=== PATIENT | male | born 1995 | race Caucasian/White ===

== ENCOUNTER 2021-03-11 17:17 | Emergency (ER) | payer SELFPAY ==
--- OUTSIDE RECORDS SUMMARY | 2021-03-11 17:20 | XMS REPORT | Continuity of Care Document ---
:[address] [facility] t Address [address] [place] [address] Care Team Providers Name Role Phone Unavailable Unavailable Unavailable Problems This patient has no known problems. Allergies, Adverse Reactions, Alerts This patient has no known allergies or adverse reactions. Medications This patient has no known medications. Procedures This patient has no known procedures. Results This patient has no known results.
--- NOTE | 2021-03-11 20:16 | RAD REPORT ---
EXAM DESCRIPTION: US - Abdomen Exam Limited - 03/11/2021 8:05 pm CLINICAL HISTORY: Abdominal pain. COMPARISON: None. FINDINGS: Examination is limited secondary to body habitus. The gallbladder wall is not thickened. A gallstone is not seen. Evaluation of the common bile duct limited secondary to overlying bowel gas. IMPRESSION: Grossly normal gallbladder ultrasound
[2021-03-11 21:08] LABS: Absolute Lymphocytes (CBC) 0.7 K/uL (0.7-4.9); Basophils % 0.4 % (0-1.3); Lymphocytes % 10.7 % (15.3-44.8); MPV 7.3 fL (7.6-11.3); RBC Red Blood Cell Count 4.27 M/uL (4.33-5.43)
[2021-03-11 21:17] LABS: Albumin 3.9 g/dL (3.4-5.0); Bilirubin Direct 0.1 mg/dL (0-0.2); Bilirubin Total 0.5 mg/dL (0.2-1.0); Potassium 3.6 mmol/L (3.5-5.1); Protein, Total 7.6 g/dL (6.4-8.2)
[2021-03-11] MEDS ORDERED: NA CHLORIDE 0.9% 1,000 ML ONE ×2 (22:06→23:08)
[2021-03-11] MEDS ORDERED: ONDANSETRON 4 MG/2 ML VIAL ONE (22:06)
[2021-03-11] MEDS ORDERED: FENTANYL CITR 100 MCG/2 ML ONE (22:06)
[2021-03-11] MEDS ORDERED: ACETAMINOPHEN 500 MG TAB ONE (23:08)
[2021-03-12 00:02] LABS: Urine Blood Negative (Negative); Urine Glucose Negative (Negative); Urine Protein Negative (Negative); Urine pH 5.5 (5.0-7.0)
--- NOTE | 2021-03-12 00:07 | ER ---
Nurse's Notes [facility] Name: Donis Moreno Age: 25 yrs Sex: Male : 1995 Arrival Date: 03/11/2021 Time: 17:21 Bed 15 Private MD: Diagnosis: Upper abdominal pain, unspecified Presentation: 03/11 18:09 Chief complaint: Patient states: RUQ pain x 2-3 days ago and fever today. Pt denies aa5 cough. Pt reports nausea. Denies vomiting/diarrhea. Coronavirus screen: fever. Ebola Screen: Patient negative for fever greater than or equal to 101.5 degrees Fahrenheit, and additional compatible Ebola Virus Disease symptoms. Initial Sepsis Screen: Does the patient meet any 2 criteria? HR > 90 bpm. Does the patient have a suspected source of infection? No. Patient's initial sepsis screen is negative. Risk Assessment: Do you want to hurt yourself or someone else? Patient reports no desire to harm self or others. Onset of symptoms was March 2021. 18:09 Acuity: CHAPARRITA 3 aa5 18:09 Method Of Arrival: Ambulatory aa5 Historical: - Allergies: 18:08 No Known Allergies; aa5 - PMHx: 18:08 None; aa5 - PSHx: 18:08 None; hernia; neck sx (tissue removed); aa5 - Immunization history:: Client reports having NOT received the Covid vaccine. - Social history:: Smoking status: Patient denies any tobacco usage or history of. Screenin:54 Abuse screen: Denies threats or abuse. Nutritional screening: No deficits noted. bb Tuberculosis screening: No symptoms or risk factors identified. Fall Risk None identified. Assessment: 21:54 General: Appears in no apparent distress. uncomfortable, obese, Behavior is calm, bb cooperative. Pain: Complains of pain in abdomen Pain currently is 9 out of 10 on a pain scale. Neuro: Level of Consciousness is awake, alert, obeys commands, Oriented to person, place, time, situation. Cardiovascular: Capillary refill < 3 seconds Patient's skin is warm and dry. Respiratory: Respiratory effort is even, unlabored, Respiratory pattern is regular. GI: Abdomen is obese. Derm: Skin is pink, warm \T\ dry. Musculoskeletal: Circulation, motion, and sensation intact. 23:03 Reassessment: Patient is alert, oriented x 3, equal unlabored respirations, skin bb warm/dry/pink. pt states pain is a little better now 7/10, IV site intact, patent, with fluids infusing, family at bedside Patient states feeling better. 03/12 00:23 Reassessment: pt resting quietly temp 101.3 Abebe TINSLEY notified pt medicated see MAR bb pt will wait for result of Covid swab prior to discharge, IV site intact, family at bedside. 01:26 Reassessment: Patient is alert, oriented x 3, equal unlabored respirations, skin bb warm/dry/pink. pt verbalized understanding of and agrees to plan of care discharge instructions given pt ambulated with steady gait to exit accompanied by spouse Patient states feeling better. Vital Signs: 03/11 18:09 BP 117 / 81; Pulse 114; Resp 20 S; Temp 100.9(O); Pulse Ox 98% on R/A; Weight 174.18 kg aa5 (R); Height 6 ft. 0 in. (182.88 cm) (R); 21:54 BP 121 / 62; Pulse 96; Resp 20; Pulse Ox 99% on R/A; Pain 9/10; bb 23:03 BP 119 / 48; Pulse 86; Resp 20 S; Temp 99.7(O); Pulse Ox 98% on R/A; Pain 7/10; bb 03/12 00:25 BP 104 / 62; Pulse 100; Resp 26 S; Temp 101.3(O); Pulse Ox 99% on R/A; bb 01:27 BP 101 / 61; Pulse 103; Resp 21 S; Temp 99.2(O); Pulse Ox 96% on R/A; Pain 4/10; bb 03/11 18:09 Body Mass Index 52.08 (174.18 kg, 182.88 cm) aa5 ED Course: 03/11 17:21 Patient arrived in ED. mr 18:08 Arm band placed on. aa5 18:11 Triage completed. aa5 20:33 Abdomen Exam Limited In Process Unspecified. EDMS 20:45 Abebe Hernández PA is PHCP. cp 20:45 Kevin Bhatt MD is Attending Physician. cp 21:38 Inserted saline lock: 20 gauge in left antecubital area, using aseptic technique. bb 21:53 Joselyn Plummer, RN is Primary Nurse. bb 21:54 Patient has correct armband on for positive identification. Bed in low position. Call bb light in reach. Adult w/ patient. Pulse ox on. NIBP on. 23:02 CT Abd/Pelvis - IV Contrast Only In Process Unspecified. EDMS 03/12 00:05 Mo Richmond MD is Referral Physician. cp 01:16 Mo Richmond MD is Referral Physician. cp 01:28 No provider procedures requiring assistance completed. IV discontinued, intact, bb bleeding controlled, No redness/swelling at site. Pressure dressing applied. Administered Medications: 03/11 21:50 Drug: NS 0.9% 1000 ml Route: IV; Rate: 1 bolus; Site: left antecubital; bb 23:31 Follow up: IV Status: Completed infusion; IV Intake: 1000ml bb 21:51 Drug: fentaNYL (PF) 25 mcg Route: IVP; Site: left antecubital; bb 23:02 Follow up: Response: Pain is decreased bb 21:53 Drug: fentaNYL (PF) 25 mcg {Note: RASS 0.} Route: IVP; Site: left antecubital; bb 23:02 Follow up: Response: Pain is decreased; RASS: Alert and Calm (0) bb 21:54 Drug: Zofran (Ondansetron) 4 mg Route: IVP; Site: left antecubital; bb 23:03 Follow up: Response: No adverse reaction bb 23:02 Drug: Tylenol 1000 mg Route: PO; bb 23:30 Follow up: Response: No adverse reaction bb 23:31 Drug: NS 0.9% 1000 ml Route: IV; Rate: 1 bolus; Site: left antecubital; bb 03/12 01:29 Follow up: IV Status: Order to discontinue infusion; IV Intake: 900ml bb 00:14 Drug: Ibuprofen 800 mg Route: PO; bb :29 Follow up: Response: No adverse reaction; Temperature is decreased bb Intake: 03/11 23:31 IV: 1000ml; Total: 1000ml. bb 03/12 01:29 IV: 900ml; Total: 1900ml. bb Outcome: 00:06 Discharge ordered by . cp 01:17 Discharge ordered by . cp 01:29 Discharged to home ambulatory, with family. bb :29 Condition: stable 01:29 Discharge instructions given to patient, Instructed on discharge instructions, follow up and referral plans. medication usage, Demonstrated understanding of instructions, follow-up care, medications, Prescriptions given X 3. 01:40 Patient left the ED. bb Signatures: Dispatcher [employer] Vannesa Squires mr ElianJoselyn, RN RN bb Naya Vallejo RN RN aa5 Abebe Hernández PA PA cp Corrections: (The following items were deleted from the chart) 00:25 09 21:54 BP 121 / 62; Pulse 96bpm; Resp 16bpm; Spontaneous; Pulse Ox 99% RA; Pain bb 03/18; bb
--- NOTE | 2021-03-12 00:07 | EDPHYS ---
Physician Documentation [facility] Name: Donis Moreno Age: 25 yrs Sex: Male : 1995 Arrival Date: 03/11/2021 Time: 17:21 Bed 15 Private MD: ED Physician Kevin Bhatt HPI: 03/11 21:15 This 25 yrs old Male presents to ER via Ambulatory with complaints of Nausea, cp Abdominal Pain. 21:15 The patient presents with abdominal pain in the right upper quadrant. Onset: The cp symptoms/episode began/occurred 3 day(s) ago. The symptoms radiate to back. Associated signs and symptoms: Pertinent positives: fever, nausea, Pertinent negatives: chest pain, constipation, diarrhea, testicular pain, vomiting. The symptoms are described as constant. Historical: - Allergies: 18:08 No Known Allergies; aa5 - PMHx: 18:08 None; aa5 - PSHx: 18:08 None; hernia; neck sx (tissue removed); aa5 - Immunization history:: Client reports having NOT received the Covid vaccine. - Social history:: Smoking status: Patient denies any tobacco usage or history of. ROS: 21:20 Constitutional: Positive for fever, Negative for body aches, chills, poor PO intake. cp 21:20 Eyes: Negative for injury, pain, redness, and discharge. cp 21:20 ENT: Negative for drainage from ear(s), ear pain, sore throat, difficulty swallowing, difficulty handling secretions. 21:20 Cardiovascular: Negative for chest pain. 21:20 Respiratory: Negative for cough, shortness of breath, wheezing. 21:20 Abdomen/GI: Positive for abdominal pain, nausea, Negative for vomiting, diarrhea, constipation. 21:20 Back: Positive for radiated pain. 21:20 : Negative for urinary symptoms, testicular pain 21:20 Neuro: Negative for altered mental status, headache, weakness. 21:20 All other systems are negative. Exam: 21:25 Constitutional: The patient appears in no acute distress, alert, awake, cp non-diaphoretic, non-toxic, well developed, well nourished, obese. 21:25 Head/Face: Normocephalic, atraumatic. cp 21:25 Eyes: Periorbital structures: appear normal, Conjunctiva: normal, no exudate, no injection, Sclera: no appreciated abnormality, Lids and lashes: appear normal, bilaterally. 21:25 ENT: External ear(s): are unremarkable, Nose: is normal, Mouth: Lips: moist, Oral mucosa: moist, Posterior pharynx: Airway: no evidence of obstruction, patent. 21:25 Neck: ROM/movement: is normal, is supple, without pain, no range of motions limitations. 21:25 Chest/axilla: Inspection: normal, Palpation: is normal, no crepitus, no tenderness. 21:25 Cardiovascular: Rate: tachycardic, Rhythm: regular. 21:25 Respiratory: the patient does not display signs of respiratory distress, Respirations: normal, no use of accessory muscles, no retractions, labored breathing, is not present, Breath sounds: are clear throughout, no decreased breath sounds, no stridor, no wheezing. 21:25 Abdomen/GI: Inspection: obese Bowel sounds: active, all quadrants, Palpation: soft, in all quadrants, moderate abdominal tenderness, in the epigastric area and right upper quadrant, rebound tenderness, is not appreciated, involuntary guarding, is not appreciated. 21:25 Back: pain, that is moderate, of the mid to upper back, ROM is normal. 21:25 Neuro: Orientation: to person, place \T\ time. Mentation: is normal, Motor: moves all fours, strength is normal. Vital Signs: 18:09 BP 117 / 81; Pulse 114; Resp 20 S; Temp 100.9(O); Pulse Ox 98% on R/A; Weight 174.18 kg aa5 (R); Height 6 ft. 0 in. (182.88 cm) (R); 21:54 BP 121 / 62; Pulse 96; Resp 20; Pulse Ox 99% on R/A; Pain 9/10; bb 23:03 BP 119 / 48; Pulse 86; Resp 20 S; Temp 99.7(O); Pulse Ox 98% on R/A; Pain 7/10; bb 09/04 00:25 BP 104 / 62; Pulse 100; Resp 26 S; Temp 101.3(O); Pulse Ox 99% on R/A; bb 01:27 BP 101 / 61; Pulse 103; Resp 21 S; Temp 99.2(O); Pulse Ox 96% on R/A; Pain 4/10; bb 03/11 18:09 Body Mass Index 52.08 (174.18 kg, 182.88 cm) aa5 MDM: 03/11 21:02 Patient medically screened. cp 21:20 Differential diagnosis: cholecystitis, Cholelithiasis, gastritis, pancreatitis, Peptic cp Ulcer Disease, Perf. Duodenal Ulcer, Perf. Gastric Ulcer, Pyelonephritis, Ureterolithiasis, urinary tract infection. 03/12 01:16 Data reviewed: vital signs, nurses notes, lab test result(s), radiologic studies, CT cp scan, ultrasound. 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 Response to treatment: VSS. Pain and nausea markedly improved. Discussed blood work, radiology studies that were negative for significant findings. Will discharge to home for continued monitoring. Recommend HIDA scan. 03/11 18:12 Order name: CBC with Diff; Complete Time: 22:06 [facility] 03/11 22:08 Interpretation: Normal except: RBC 4.27; HGB 12.4; HCT 37.0; MPV 7.3; MALINI% 81.1; LYM% cp 10.7. 03/11 18:12 Order name: Basic Metabolic Panel; Complete Time: 22:06 [facility] 03/11 22:09 Interpretation: Normal except: GFR 72; CA 8.4. 03/11 18:12 Order name: Hepatic Function; Complete Time: 22:06 [facility] 03/11 22:12 Interpretation: Normal except: GLOB 3.7. 03/11 18:12 Order name: Lipase; Complete Time: 22:06 [facility] 03/11 20:33 Order name: Abdomen Exam Limited [facility] 03/11 22:20 Order name: CT Abd/Pelvis - IV Contrast Only 03/12 00:02 Order name: Urine Dipstick-Ancillary [facility] 03/12 00:04 Order name: Urine Dipstick-Ancillary [facility] 03/12 00:54 Order name: COVID-19/FLU A+B [facility] 03/11 18:12 Order name: IV; Complete Time: 21:39 aa5 03/11 18:12 Order name: Labs collected and sent; Complete Time: 21:39 aa5 03/11 21:08 Order name: Urine Dipstick-Ancillary (obtain specimen); Complete Time: 00:06 cp 03/11 23:28 Order name: PO challenge; Complete Time: 00:06 cp Administered Medications: 03/11 21:50 Drug: NS 0.9% 1000 ml Route: IV; Rate: 1 bolus; Site: left antecubital; bb 23:31 Follow up: IV Status: Completed infusion; IV Intake: 1000ml bb 21:51 Drug: fentaNYL (PF) 25 mcg Route: IVP; Site: left antecubital; bb 23:02 Follow up: Response: Pain is decreased bb 21:53 Drug: fentaNYL (PF) 25 mcg {Note: RASS 0.} Route: IVP; Site: left antecubital; bb 23:02 Follow up: Response: Pain is decreased; RASS: Alert and Calm (0) bb 21:54 Drug: Zofran (Ondansetron) 4 mg Route: IVP; Site: left antecubital; bb 23:03 Follow up: Response: No adverse reaction bb 23:02 Drug: Tylenol 1000 mg Route: PO; bb 23:30 Follow up: Response: No adverse reaction bb 23:31 Drug: NS 0.9% 1000 ml Route: IV; Rate: 1 bolus; Site: left antecubital; bb 03/12 01:29 Follow up: IV Status: Order to discontinue infusion; IV Intake: 900ml bb 00:14 Drug: Ibuprofen 800 mg Route: PO; bb 01:29 Follow up: Response: No adverse reaction; Temperature is decreased bb Disposition Summary: 03/12/21:17 Discharge Ordered Location: Home(03/12/21 01:17) cp Problem: new(03/12/21 01:17) cp Symptoms: have improved(03/12/21:17) cp Condition: Stable(03/12/21 01:17) cp Diagnosis - Upper abdominal pain, unspecified(03/12/21 01:17) cp Followup: cp - With: Mo Richmond MD - When: 2 - 3 days - Reason: Recheck today's complaints Discharge Instructions: - Discharge Summary Sheet cp - Abdominal Pain, Adult cp Forms: - Medication Reconciliation Form cp - Thank You Letter cp - Antibiotic Education cp - Prescription Opioid Use cp - Work release form bb Prescriptions: - Pepcid 20 mg Oral Tablet - take 1 tablet by ORAL route every 12 hours for 10 days; 20 tablet; Refills: 0, cp Product Selection Permitted - promethazine 25 mg Oral Tablet - take 1 tablet by ORAL route every 6 hours As needed; 20 tablet; Refills: 0, cp Product Selection Permitted - dicyclomine 20 mg Oral Tablet - take 1 tablet by ORAL route 4 times per day; 30 tablet; Refills: 0, Product cp Selection Permitted Addendum: 03/13/2021 03:16 Co-signature as Attending Physician, Kevin Bhatt MD. [facility] Signatures: Dispatcher [employer] Joselyn Soria RN RN Naya Nelson RN RN aa5 Abebe Hernández PA PA Kevin Gomez MD MD [id number] Corrections: (The following items were deleted from the chart) 03/11 22:08 22:07 Normal except: RBC 4.27; HGB 12.4; HCT 37.0. cp cp 22:09 22:09 Normal except: GFR 72. cp cp 03/12 00:14 00:06 Home cp cp 00:14 00:06 new cp cp 00:14 00:06 have improved cp cp 00:14 00:06 Stable cp cp 00:14 00:06 Upper abdominal pain, unspecified cp cp 00:18 03/11 21:09 CORONAVIRUS+MR.LAB.BRZ ordered. EDMS EDMS
[2021-03-12] MEDS ORDERED: IBUPROFEN 400 MG TAB ONE (00:39)
[2021-03-12 00:53] LABS: SARS-COV-2 RT PCR NEGATIVE (NEGATIVE)
[2021-03-12 01:52] VITALS: BP 101/61; TEMP 99.2; O2SAT 96
--- NOTE | 2021-03-12 15:34 | RAD REPORT ---
EXAM DESCRIPTION: CT - Abdomen Pelvis W Contrast - 03/11/2021 11:02 pm CLINICAL HISTORY: 25 years, Male, RUQ abdomen pain COMPARISON: None. TECHNIQUE: Contrast-enhanced images of the abdomen and pelvis were performed utilizing 2 mm slice th ickness at 2 mm interval reconstruction from the lung bases to the ischial tuberosities after the adm inistration of IV contrast. In addition multiplanar reformats in the coronal and sagittal plane were obtained and reviewed. This exam was performed according to our departmental dose-optimization protocol, which includes auto mated exposure control, adjustment of the mA and/or kV according to patient size and/or use of iterat fabricio reconstruction technique. FINDINGS: The lung bases demonstrate to be clear. The liver demonstrate slight increased size and decreased attenuation corresponding to fatty filtrati on. Otherwise the liver, gallbladder, pancreas, spleen and adrenal glands demonstrate to be unremarka ble, no focal lesions are noted. The kidneys demonstrate normal uptake of contrast media. There is no evidence for significant nephrol ithiasis and/or hydronephrosis. Grossly the unopacified stomach, small bowel and large bowel demonstrate to be within normal limits. There is no evidence for bowel dilatation/or free air. The appendix is normal. The urinary bladder demonstrate to be unremarkable. The prostate gland is normal. The aorta demon strate to be normal. There is no retroperitoneal lymphadenopathy. There is no evidence for ascites/ or significant abnormal fluid collections. The rest of the soft tissue and bony structures are within normal limits. IMPRESSION: Mild fatty filtration of the liver. Otherwise unremarkable CT scan of the abdomen and pelvis with contrast Electronically signed by: Kevin Wright MD 03/11/2021 11:10 PM CDT Due to temporary technical issues with the PACS/Fluency reporting system, reports are being signed by the in house radiologists without review as a courtesy to insure prompt reporting. The interpreting radiologist is fully responsible for the content of the report.
== END 2021-03-12 01:40 | disposition home or self-care (01) ==
LOC: ER 17:17
DX: R10.11 Right upper quadrant pain (principal)
CPT/HCPCS: 0240U; 36415; 74177; 76705; 80048; 80076; 81003; 83690; 85025; 96361; 96374; 96375; 99284; J2405; J3010; J7030; Q9967

== ENCOUNTER 2021-11-20 19:46 | Emergency (ER) | payer SELFPAY ==
--- OUTSIDE RECORDS SUMMARY | 2021-11-20 20:11 | XMS REPORT | Continuity of Care Document ---
:[address] [facility] t Address [address] [place] [address] Care Team Providers Name Role Phone Pcp, Does Not Have A Primary Care Physician Aman MENENDEZ Attending Clinician Unavailable Garrison MCCORD Attending Clinician Aman Russo Attending Clinician UNKNOWN Attending Clinician Unavailable Dilshad MCCORD Attending Clinician Bairon Smart Attending Clinician Payers Payer Name Policy Type Policy Number Effective Date Expiration Date S maribel [facility] [id number] 2021 00:00:00 Problems Condition Condition Condition Status Onset Resolution Last Treating Co mments Source Name Details Category Date Date Treatment Clinician Date No known No known Disease Unive rs active active ity of problems problems [facility] Allergies, Adverse Reactions, Alerts Allergy Allergy Status Severity Reaction(s) Onset Inactive Treating Comm ents Source Name Type Date Date Clinician NO KNOWN Drug Active Univers ALLERGIE Class ity of S [facility] Social History Social Habit Start Date Stop Date Quantity Comments Source Exposure to 2021-11-10 2021-11-20 Not sure [facility] SARS-CoV-2 (event) 00:00:00 12:58:00 Medica [facility] Tobacco use and 2021-11-20 2021-11-20 Never used [facility] exposure 00:00:00 00:00:00 Medical [place] Sex Ass[birth year] [facility] 00:00:00 00:00:00 Medical Branch Smoking Status Start Date Stop Date Source Never smoker [facility] Medical Branch Unknown if ever smoked [facility] Medical Branch Medications Ordered Filled Start Stop Current Ordering Indication Dosage Frequency Signature Comments Components Source Medication Medication Date Date Medication? Clinician (SIG) Name Name alessandra Yes [id number] 10mL Take 10 mL Univers mine-pseudo 5-15 by mouth 4 it y of ephedrine-D 00:00: (four) [place] (BROMFED 00 times Medical DM) 2-30-10 daily as Bran ch mg/5 mL needed for syrup Congestion /Allergies or Cold symptoms. methylPREDN Yes [id number] Take by Univers ISolone 5-15 mouth ity of (MEDROL, 00:00: SEE-INSTRU Go as LOI,) 4 mg 00 CTIONS. Medica l tablets follow Branch package directions ketorolac No 30mg 30 mg, Unive rs (TORADOL) 10-25 Intramuscu ity of injection 21:45: 21:31 lar, ONCE, [place] 30 mg 00 :00 1 dose, Medical Mon Branch 10/25/20 at 1645, RAJANI
Fa culty member approving Restricted medication : JAK EVANS benzonatate Yes [id number] 100mg Take 1 Univers 100 mg 4-19 capsule by ity of capsule 00:00: mouth 3 (three) Medical times Branch daily as needed for Cough. ondansetron Yes [id number] 4mg Take 1 Univers (ZOFRAN 4-19 tablet by ity of ODT) 4 mg 00:00: mouth [place] disintegrat 00 every 8 Medic al ing tablet (eight) Branch hours as needed for Nausea and Vomiting (N/V). benzonatate Yes [id number] 100mg Take 1 Univers 100 mg 4-19 capsule by ity of capsule 00:00: mouth 3 00 (three) Medical times Branch daily as needed for Cough. ondansetron Yes [id number] 4mg Take 1 Univers (ZOFRAN 4-19 tablet by ity of ODT) 4 mg 00:00: mouth [place] disintegrat 00 every 8 Medic al ing tablet (eight) Branch hours as needed for Nausea and Vomiting (N/V). benzonatate Yes [id number] 100mg Take 1 Univers 100 mg 4-19 capsule by ity of capsule 00:00: mouth 3 [place] 00 (three) Medical times Branch daily as needed for Cough. ondansetron Yes [id number] 4mg Take 1 Univers (ZOFRAN 4-19 tablet by ity of ODT) 4 mg 00:00: mouth [place] disintegrat 00 every 8 Medic al ing tablet (eight) Branch hours as needed for Nausea and Vomiting (N/V). dexAMETHaso 2020- No [id number] 6mg Take 1 Univers ne 6 mg 4-19 -27 tablet by ity of tablet 00:00: 04:59 mouth [place] 00 :00 daily for Medical 7 days. [place] Vital Signs Vital Name Observation Time Observation Value Comments Source Systolic blood 2021-11-20 17:59:00 106 mm[Hg] Univer sity [facility] Diastolic blood 2021-11-20 17:59:00 70 mm[Hg] [facility] Heart rate 2021-11-20 17:59:00 78 /min [facility] Body temperature 2021-11-20 17:59:00 37.06 Estella [facility] Respiratory rate 2021-11-20 17:59:00 18 /min [facility] Body height 2021-11-20 17:59:00 185.4 cm [facility] Body weight 2021-11-20 17:59:00 189.15 kg [facility] BMI 2021-11-20 17:59:00 55.02 kg/m2 [facility] Oxygen saturation in 2021-11-20 17:59:00 96 /min [facility] Arterial blood by [facility] Pulse oximetry Branch Systolic blood 2020-10-25 19:39:00 117 mm[facility]Hg[facility] 2020-10-25 19:39:00 77 mm[Hg] [facility] rate 2020-10-25 19:39:00 77 /min [facility] Body temperature 2020-10-25 19:39:00 37.56 Estella [facility] Respiratory rate 2020-10-25 19:39:00 20 /min [facility] Body weight 2020-10-25 19:39:[address] [facility] Oxygen saturation in 2020-10-25 19:39:00 97 /min [facility] Arterial blood by [facility] Pulse oximetry [place] Procedures Procedure Date / Time Performed Performing Clinician Casey e XR CHEST 2 VW 2020-10-25 20:17:59 Jak Evans Rupert o f [facility] NOTICE OF PRIVACY 2020-10-25 19:36:17 Doctor Unassigned, No [facility] Name [facility] CONSENT/REFUSAL FOR 2020-10-25 19:34:24 [facility], [facility] TREATMENT Plan of Care Planned Activity Planned Date Details Comments Source Encounters Start End Encounter Admission Attending Care Care Encounter Source Date/Time Date/Time Type Type Clinicians Facility Department ID 2021-11-20 2021-11-20 Outpatient R GEMMA [facility] [id number] Univers 13:00:00 13:38:12 RACHID elliott o [facility] 2021-11-20 2021-11-20 Urgent Ayse Ji [facility] [id number] Univers 13:00:00 13:38:12 Rachid [place] [facility] [id number] [facility] [place] [id number] Go as BALDO?BLEA [id number] Id taras [address] MEDICAL OFFICE BUILDING 2021-11-20 2021-11-20 Outpatient R [facility]MA [facility] [id number] Univers 13:15:00 13:15:00 RACHID elliott o [facility] 2021-11-20 2021-11-20 Outpatient R [facility] [id number] Univers 13:00:00 13:00:[id number] [facility] 2021-11-20 2021-11-20 Outpatient R MELLISSA [facility] [id number] Univers 13:00:00 13:00:00 ATTENDING ity [facility] 2021-03-11 2021-03-11 Urgent Dilshad, [facility] [id number] Univers 15:00:00 15:20:[address] [facility] [id number] i ty of [place] [id number] Go as Baldo?Kavita [id number] Id taras [address] Medical Office Building 2021-03-11 2021-03-11 Outpatient R [facility] [id number] Univers 15:00:00 15:00:[address] [facility] 2020-10-25 2020-10-25 Emergency [facility] [id number] Univers 14:42:00 16:51:00 Jak R [place] [id number] i ty of [place] [id number] [facility] [id number] [facility] 084 Branch 2020-10-25 2020-10-25 Emergency X [facility] ERT [id number] Univers 14:34:00 14:34:00 [facility] [place] [facility] Results Test Description Test Test Results Result Source Time Comments Comments XR CHEST 2 VW 2020-10- Bilateral ill-defined University of 19 linear opacities may [facility] 20:57:58 represent viral or Branch atypicalpneumonia, including, but not limited to, COVID 19 pneumonia. Disclaimer: Generally, the findings on chest imaging in COVID-19 are notspecific, and overlap with other infections, including influenza, H1N1,SARS and MERS.According to the Centers for Disease Control (CDC) and recent statement ofthe [employer], viral testing remains the only specificmethod of diagnosis. Confirmation with the viral test is required, even ifradiologic findings are suggestive of COVID-[address]. Preliminary Report Dictated by Resident: Diogenes Chino MD., have reviewed this study and agree with theabove report.EXAM: XR CHEST 2 VW HISTORY: 25 years-old Male; cough and congestion starting Sunday TECHNIQUE: Frontal and lateral views COMPARISON: None FINDINGS: Streaky ill-defined opacities are seen bilaterally, most prevalent in thelower lobes. No focal consolidation, pleural effusion, or pneumothorax isvisualized. The cardiomediastinal silhouette is normal. No acute osseous abnormality is present. [facility], Radiant Results Inft User - 10/25/2020 3:59 PM CDTEXAM: XR CHEST 2 VWHISTORY: 25 years-old Male; cough and congestion starting SundayTECHNIQUE: Frontal and lateral viewsCOMPARISON: NoneFINDINGS:Streaky ill-defined opacities are seen bilaterally, most prevalent in thelower lobes. No focal consolidation, pleural effusion, or pneumothorax isvisualized.The cardiomediastinal silhouette is normal. No acute osseous abnormality is present. IMPRESSIONBilateral ill-defined linear opacities may represent viral or atypicalpneumonia, including, but not limited to, COVID 19 pneumonia.Disclaimer: Generally, the findings on chest imaging in COVID-19 are notspecific, and overlap with other infections, including influenza, H1N1,SARS and MERS.According to the Centers for Disease Control (CDC) and recent statement ofthe [employer], viral testing remains the only specificmethod of diagnosis. Confirmation with the viral test is required, even ifradiologic findings are suggestive of COVID-[address] Preliminary Report Dictated by Resident: Chad Lim, Diogenes Alex MD., have reviewed this study and agree with theabove report.
[2021-11-20] MEDS ORDERED: KETOROLAC 30 MG/ML INJ ONE (23:06)
[2021-11-20 23:21] LABS: Absolute Lymphocytes (CBC) 1.3 K/uL (0.7-4.9); Hematocrit 34.2 % (39.6-49.0); Lymphocytes % 17.6 % (15.3-44.8); MPV 7.5 fL (7.6-11.3); RBC Red Blood Cell Count 3.94 M/uL (4.33-5.43)
[2021-11-20 23:31] LABS: Albumin 4.1 g/dL (3.4-5.0); Bilirubin Direct 0.1 mg/dL (0-0.2); Bilirubin Total 0.4 mg/dL (0.2-1.0); Magnesium 2.4 mg/dL (1.8-2.4); Potassium 4.1 mmol/L (3.5-5.1); Protein, Total 8.4 g/dL (6.4-8.2); Troponin High Sensitivity 4.6 pg/mL (<58.9)
--- NOTE | 2021-11-21 01:09 | EDPHYS ---
Physician Documentation [facility] Name: Donis Moreno Age: 26 yrs Sex: Male : 1995 Arrival Date: 11/20/2021 Time: 19:48 Bed 13 Private MD: ED Physician Kevin Bhatt HPI: 11/20 23:00 This 26 yrs old Male presents to ER via Wheelchair with complaints of Flank Pain. cp 23:00 The patient or guardian reports chest pain that is located primarily in the right lower cp lateral chest wall. 23:00 The pain does not radiate. Associated signs and symptoms: Pertinent positives: blurry cp vision and lightheaded, Pertinent negatives: diaphoresis, lower extremity pain, lower extremity swelling, palpitations, shortness of breath, syncope. 23:00 The chest pain is described as waxing and waning. cp 23:00 Modifying factors: the symptoms are aggravated by deep breath, movement. Severity of cp pain: in the emergency department the pain is unchanged despite home interventions. The patient has been recently seen by a physician: in [place] ED, earlier today, with similar presenting complaints, X-rays were performed. Historical: - Allergies: 20:30 No Known Allergies; jb4 - PMHx: 20:30 None; jb4 - PSHx: 20:30 hernia; neck sx (tissue removed); jb4 - Immunization history:: Adult Immunizations up to date. - Social history:: Smoking status: Patient denies any tobacco usage or history of. ROS: 23:05 Constitutional: Negative for body aches, chills, fever, poor PO intake. cp 23:05 Eyes: Negative for injury, pain, redness, and discharge. cp 23:05 Neck: Negative for pain with movement, pain at rest, stiffness. cp 23:05 Cardiovascular: Positive for chest pain, Negative for edema, palpitations. 23:05 Respiratory: Negative for cough, shortness of breath, wheezing. 23:05 Abdomen/GI: Negative for vomiting, diarrhea, constipation. 23:05 : Negative for urinary symptoms. 23:05 Neuro: Negative for altered mental status, headache, weakness. 23:05 All other systems are negative. Exam: 23:10 Constitutional: The patient appears in no acute distress, alert, awake, cp non-diaphoretic, non-toxic, well developed, well nourished, obese, uncomfortable. 23:10 Head/Face: Normocephalic, atraumatic. cp 23:10 Eyes: Periorbital structures: appear normal, Conjunctiva: normal, no exudate, no injection, Sclera: no appreciated abnormality, Lids and lashes: appear normal, bilaterally. 23:10 ENT: External ear(s): are unremarkable, Nose: is normal, Mouth: Lips: moist, Oral mucosa: moist, Posterior pharynx: Airway: no evidence of obstruction, patent. 23:10 Neck: ROM/movement: is normal, is supple, without pain, no range of motions limitations. 23:10 Chest/axilla: Inspection: normal, Palpation: tenderness, of the right lower lateral and posterior rib area. 23:10 Cardiovascular: Rate: normal, Rhythm: regular, Edema: is not appreciated, JVD: is not appreciated. 23:10 Respiratory: the patient does not display signs of respiratory distress, Respirations: normal, no use of accessory muscles, no retractions, labored breathing, is not present, Breath sounds: are clear throughout, no decreased breath sounds, no stridor, no wheezing. 23:10 Abdomen/GI: Inspection: abdomen appears normal, Bowel sounds: active, all quadrants, Palpation: soft, in all quadrants, moderate abdominal tenderness, in the anterior aspect of right lateral abdomen and posterior aspect of right lateral abdomen, rebound tenderness, is not appreciated, involuntary guarding, is not appreciated. 23:10 Back: Straight leg raises: of both lower extremities does not illicit pain, no vertebral tenderness to palpation. 23:10 Skin: cellulitis, is not appreciated, no rash present. 23:10 Neuro: Orientation: to person, place \T\ time. Mentation: is normal, Motor: moves all fours, strength is normal, Sensation: is normal. 23:16 ECG was reviewed by the Attending Physician. cp Vital Signs: 20:27 BP 122 / 79; Pulse 72; Resp 18; Temp 98.1(TE); Pulse Ox 95% on R/A; Weight 189.15 kg jb4 (R); Height 6 ft. 0 in. (182.88 cm) (R); Pain 9/10; 23:16 BP 117 / 73; Pulse 60; Resp 18; Temp 98.3; Pulse Ox 100% on R/A; Pain 4/10; janice 11/21 00:28 BP 131 / 69; Pulse 60; Resp 18; Pulse Ox 100% on R/A; janice 01:16 BP 122 / 62; Pulse 54; Resp 14; Temp 97.3; Pulse Ox 99% on R/A; janice 11/20 20:27 Body Mass Index 56.55 (189.15 kg, 182.88 cm) jb4 MDM: 11/20 22:53 Patient medically screened. cp 23:00 Differential diagnosis: acute pericarditis, chest wall pain, cholecystitis, cp Cholelithiasis costochondritis, pancreatitis, pericarditis, pleurisy, pneumonia, pneumothorax, pulmonary embolus. 11/21 01:09 Data reviewed: vital signs, nurses notes, lab test result(s), EKG, radiologic studies, cp CT scan, plain films. 01:09 Test interpretation: by ED physician or midlevel provider: ECG, plain radiologic cp studies. Counseling: I had a detailed discussion with the patient and/or guardian regarding: the historical points, exam findings, and any diagnostic results supporting the discharge/admit diagnosis, lab results, radiology results, the need for outpatient follow up, a family practitioner, to return to the emergency department if symptoms worsen or persist or if there are any questions or concerns that arise at home. Response to treatment: the patient's symptoms have mildly improved after treatment, VSS. Labs and radiology studies negative for acute findings, and as a result, I will discharge patient. 11/20 22:55 Order name: Basic Metabolic Panel; Complete Time: 23:36 cp 11/20 23:36 Interpretation: Normal except: GFR 79. cp 11/20 22:55 Order name: CBC with Diff; Complete Time: 23:36 cp 11/21 01:01 Interpretation: Normal except: RBC 3.94; HCT 34.2; MPV 7.5; HGB 11.5; MALINI% 74.1. cp 11/20 22:55 Order name: D-Dimer; Complete Time: 23:36 cp 11/20 22:55 Order name: LFT's; Complete Time: 23:36 cp 11/21 01:01 Interpretation: Normal except: TP 8.4; GLOB 4.3; A/G 1.0. cp 11/20 22:55 Order name: Magnesium; Complete Time: 23:36 cp 11/20 22:55 Order name: Troponin HS; Complete Time: 23:36 cp 11/20 22:55 Order name: EKG; Complete Time: 22:55 cp 11/20 22:55 Order name: XRAY Chest (1 view) cp 11/20 23:38 Order name: CT Chest For PE Angio cp 11/20 23:38 Order name: CT Abd/Pelvis - IV Contrast Only cp 11/20 22:55 Order name: Cardiac monitoring; Complete Time: 23:21 cp 11/20 22:55 Order name: EKG - Nurse/Tech; Complete Time: 23:21 cp 11/20 22:55 Order name: IV Saline Lock; Complete Time: 23:21 cp 11/20 22:55 Order name: Labs collected and sent; Complete Time: 23:21 cp 11/20 22:55 Order name: O2 Per Protocol; Complete Time: 23:21 cp 11/20 22:55 Order name: O2 Sat Monitoring; Complete Time: 23:21 cp 11/20 22:55 Order name: Urine Dipstick-Ancillary (obtain specimen) cp EC/15 23:16 Rate is 56 beats/min. Rhythm is regular. AR interval is normal. QRS interval is cp prolonged at 122 msec. QT interval is normal. T waves are Inverted in lead aVR. Interpreted by me. Reviewed by me. Administered Medications: 23:05 Drug: Ketorolac 30 mg Route: IVP; Site: right antecubital; ag7 11/21 01:16 Drug: Flexeril (cyclobenzaprine) 10 mg Route: PO; janice 01:17 Follow up: Response: No adverse reaction janice 01:16 Drug: morphine 4 mg Route: IVP; Site: right antecubital; janice 01:17 Follow up: Response: No adverse reaction; Pain is decreased janice Disposition: 05:40 Co-signature as Attending Physician, Kevin Bhatt MD. [email or web address] Disposition Summary: 11/21/21 01:09 Discharge Ordered Location: Home cp Problem: new cp Symptoms: have improved cp Condition: Stable cp Diagnosis - Chest pain, unspecified cp Followup: cp - With: Private Physician - When: 1 - 2 days - Reason: Recheck today's complaints Discharge Instructions: - Discharge Summary Sheet cp - Nonspecific Chest Pain, Adult cp Forms: - Medication Reconciliation Form cp - Thank You Letter cp - Antibiotic Education cp - Prescription Opioid Use cp Prescriptions: - Cyclobenzaprine 10 mg Oral Tablet - take 1 tablet by ORAL route every 8 hours As needed; 30 tablet; Refills: 0, cp Product Selection Permitted - Diclofenac Sodium 75 mg Oral Tablet Sustained Release - take 1 tablet by ORAL route 2 times per day; 30 tablet; Refills: 0, Product cp Selection Permitted Signatures: Dispatcher [employer] EDMS Abebe Hernández PA PA cp Mickey Khan RN RN jb4 Kevin Bhatt MD MD mh7 Joselyn Matamoros RN RN janice Nicky Hernandez RN RN ag7 Corrections: (The following items were deleted from the chart) 01:01 01:00 Normal except: RBC 3.94; HGB 11.5; HCT 34.2. cp cp
--- NOTE | 2021-11-21 01:09 | ER ---
Nurse's Notes [facility] Name: Donis Moreno Age: 26 yrs Sex: Male : 1995 Arrival Date: 11/20/2021 Time: 19:48 Bed 13 Private MD: Diagnosis: Chest pain, unspecified Presentation: 11/20 20:27 Chief complaint: Patient states: My right side is hurting. It hurts when I cough. Today jb4 got much worse and it is hard to move the right side of my body because of the pain. When the pain gets to its worst , I get light headed and my vision blurs and I feel like I am about to pass out. Coronavirus screen: Client presents with at least one sign or symptom that may indicate coronavirus-19. Standard/surgical mask placed on the client. Ebola Screen: No symptoms or risks identified at this time. Initial Sepsis Screen: Does the patient meet any 2 criteria? No. Patient's initial sepsis screen is negative. Does the patient have a suspected source of infection? No. Patient's initial sepsis screen is negative. Risk Assessment: Do you want to hurt yourself or someone else? Patient reports no desire to harm self or others. Onset of symptoms was November 20, 2021. 20:27 Method Of Arrival: Wheelchair jb4 20:27 Acuity: CHAPARRITA 3 jb4 Triage Assessment: 23:18 General: Appears in no apparent distress. Behavior is calm, cooperative. janice 23:19 Pain: Complains of pain in back. janice Historical: - Allergies: 20:30 No Known Allergies; jb4 - PMHx: 20:30 None; jb4 - PSHx: 20:30 hernia; neck sx (tissue removed); jb4 - Immunization history:: Adult Immunizations up to date. - Social history:: Smoking status: Patient denies any tobacco usage or history of. Screenin:17 Abuse screen: Denies threats or abuse. Denies injuries from another. Nutritional janice screening: No deficits noted. Tuberculosis screening: No symptoms or risk factors identified. Fall Risk None identified. Assessment: 22:42 Reassessment: Patient appears in no apparent distress at this time. No changes from janice previously documented assessment. I recv'd the pt to room #13 at this and placed him on the bs monitor. X-ray is at bedside performing the exam. 23:17 Reassessment: I was mistaken, x-ray was here for another pt. All labs drawn and meds janice given. I've asked the pt to provide a urine specimen. He is resting with his SO at bedside. 23:33 Reassessment: The pt's d dimer is 636. This was given to the provider. janice Vital Signs: 20:27 BP 122 / 79; Pulse 72; Resp 18; Temp 98.1(TE); Pulse Ox 95% on R/A; Weight 189.15 kg jb4 (R); Height 6 ft. 0 in. (182.88 cm) (R); Pain 9/10; 23:16 BP 117 / 73; Pulse 60; Resp 18; Temp 98.3; Pulse Ox 100% on R/A; Pain 4/10; janice 11/21 00:28 BP 131 / 69; Pulse 60; Resp 18; Pulse Ox 100% on R/A; janice 01:16 BP 122 / 62; Pulse 54; Resp 14; Temp 97.3; Pulse Ox 99% on R/A; janice 11/20 20:27 Body Mass Index 56.55 (189.15 kg, 182.88 cm) jb4 ED Course: 11/20 19:48 Patient arrived in ED. ja2 20:30 Triage completed. jb4 20:30 Arm band placed on right wrist. jb4 22:42 Joselyn Matamoros, RN is Primary Nurse. janice 22:47 Abebe Hernández PA is PHCP. cp 22:47 Kevin Bhatt MD is Attending Physician. cp 23:17 No provider procedures requiring assistance completed. Inserted saline lock: 20 gauge janice in right antecubital area, using aseptic technique. Blood collected. 23:19 Bed in low position. Call light in reach. Side rails up X 1. Adult w/ patient. Cardiac janice monitor on. Pulse ox on. NIBP on. 23:21 Basic Metabolic Panel Sent. janice 23:21 CBC with Diff Sent. janice 23:21 D-Dimer Sent. janice 23:21 LFT's Sent. janice 23:21 Magnesium Sent. janice 23:21 Troponin HS Sent. janice 11/21 00:33 CT Chest For PE Angio In Process Unspecified. EDMS 00:33 CT Abd/Pelvis - IV Contrast Only In Process Unspecified. EDMS 00:58 XRAY Chest (1 view) In Process Unspecified. EDMS 01:53 intact, bleeding controlled, No redness/swelling at site. Pressure dressing applied. janice Administered Medications: 11/20 23:05 Drug: Ketorolac 30 mg Route: IVP; Site: right antecubital; ag7 11/21 01:16 Drug: Flexeril (cyclobenzaprine) 10 mg Route: PO; janice 01:17 Follow up: Response: No adverse reaction janice 01:16 Drug: morphine 4 mg Route: IVP; Site: right antecubital; janice 01:17 Follow up: Response: No adverse reaction; Pain is decreased janice Medication: 11/20 23:16 VIS not applicable for this client. janice Outcome: 23:19 Condition: stable janice 11/21 01:09 Discharge ordered by . cp 01:53 Discharged to home ambulatory, with family. janice 01:53 Discharge instructions given to patient, Instructed on discharge instructions, follow up and referral plans. medication usage, Demonstrated understanding of instructions, follow-up care, medications, Prescriptions given X 2. 01:53 Patient left the ED. janice Signatures: Dispatcher [employer] EDMS Abebe Hernández PA PA cp Bryson, James, RN RN Ofe Post Brenda, MILTON RN Nicky Thomas, RN RN ag7
[2021-11-21] MEDS ORDERED: CYCLOBENZAPRINE 10 MG TAB ONE (01:14)
[2021-11-21] MEDS ORDERED: MORPHINE 4 MG/ML SYR ONE (01:14)
[2021-11-21 02:04] VITALS: BP 122/62; TEMP 97.3; O2SAT 99
--- NOTE | 2021-11-21 10:04 | EKG ---
Test Date: 2021-11-20 Test Time: 23:14:23 Chemistry Research Assistant: MEASUREMENT RESULTS: Intervals: Rate: 56 GA: 178 QRSD: 122 QT: 440 QTc: 424 Thornton: P: 23 GA: 178 QRS: 41 T: 38 INTERPRETIVE STATEMENTS: Sinus bradycardia with sinus arrhythmia Nonspecific intraventricular conduction delay Borderline ECG No previous ECG available for comparison Electronically Signed On 11-21-21 10:02:29 CDT by Roger Russell
--- NOTE | 2021-11-21 14:13 | RAD REPORT ---
EXAM DESCRIPTION: Shahrzad Single View11/21/2021 12:56 am CLINICAL HISTORY: 26 years, Male, RIB PAIN - RIGHT COMPARISON: None FINDINGS: Single view of the chest was obtained portable. No prior films are available for compariso n. The lung volume is decreased. The cardiomediastinal silhouette demonstrate to be unremarkable. The heart is not enlarged. The thoracic aorta is unremarkable. Costophrenic angles are sharp. No areas of consolidation or masses are seen. The rest of the soft tissue and bony structures demonstrate t o be unremarkable. IMPRESSION: Decreased lung volume. No acute cardiopulmonary disease identified. Electronically signed by: Kevin Wright MD 11/21/2021 1:37 AM CDT Due to temporary technical issues with the PACS/Fluency reporting system, reports are being signed by the in house radiologist without review as a courtesy to ensure prompt reporting. The interpreting r adiologist is fully responsible for the content of the report.
--- NOTE | 2021-11-21 14:22 | RAD REPORT ---
EXAM DESCRIPTION: CT - Abdomen Pelvis W Contrast - 11/21/2021 7:05 am CLINICAL HISTORY: The patient is 26 years old and is Male; right flank pain TECHNIQUE: Axial computed tomographic angiography images of the chest and axial computed tomography images of the abdomen and pelvis with intravenous contrast. This CT exam was performed using one or more of the following dose reduction techniques: automated exposure control, adjustment of the mA and/or kV according to patient size, and/or use of iterative reconstruction technique. MIP reconstructed images were created and reviewed. Oblique reformatted images were created and reviewed. DLP: 4453 mGy*cm COMPARISON: None. FINDINGS: CHEST: AORTA: No acute findings. No aortic aneurysm. No dissection. PULMONARY ARTERIES: Unremarkable as visualized. No pulmonary embolism is identified. GREAT VESSELS OF AORTIC ARCH: No acute findings. No dissection. No arterial occlusion or signi ficant stenosis. LUNGS: Dependent subsegmental atelectasis. No focal consolidation. PLEURAL SPACE: Unremarkable. No significant effusion. No pneumothorax. HEART: Unremarkable. No cardiomegaly. No significant pericardial effusion. ABDOMEN: LIVER: Hepatomegaly and hepatic steatosis. GALLBLADDER AND BILE DUCTS: Unremarkable. No calcified stones. No ductal dilation. PANCREAS: Unremarkable. No ductal dilation. No mass. SPLEEN: Unremarkable. No splenomegaly. ADRENALS: Unremarkable. No mass. KIDNEYS AND URETERS: Unremarkable. No hydronephrosis. No solid mass. STOMACH AND BOWEL: Unremarkable. No obstruction. No mucosal thickening. PELVIS: APPENDIX: The appendix is seen and is within normal limits. BLADDER: Unremarkable. No mass. REPRODUCTIVE: Unremarkable as visualized. CHEST, ABDOMEN and PELVIS: INTRAPERITONEAL SPACE: Unremarkable. No significant fluid collection. No free air. BONES/JOINTS: No acute fracture. No dislocation. SOFT TISSUES: Small fat-containing umbilical hernia. LYMPH NODES: Unremarkable. No enlarged lymph nodes. IMPRESSION: 1. No pulmonary embolism. No acute intrathoracic abnormality. 2. No acute abdominal or pelvic abnormality. 3. Hepatomegaly and hepatic steatosis. Electronically signed by: Robert Saab DO 11/21/2021 12:55 AM CDT Due to temporary technical issues with the PACS/Fluency reporting system, reports are being signed by the in house radiologist without review as a courtesy to ensure prompt reporting. The interpreting r adiologist is fully responsible for the content of the report.
== END 2021-11-21 01:53 | disposition home or self-care (01) ==
LOC: ER 19:46
DX: R07.9 Chest pain, unspecified (principal)
CPT/HCPCS: 36415; 71045; 71275; 74177; 80048; 80076; 83735; 84484; 85025; 85379; 93005; 96374; 96375; 99284; Q9967

== ENCOUNTER 2022-06-25 06:37 | Emergency (ER) | payer SELFPAY ==
--- OUTSIDE RECORDS SUMMARY | 2022-06-25 06:40 | XMS REPORT | Continuity of Care Document ---
:1995 Author Organization [facility] t Address [address] [place] [address] Care Team Providers Name Role Phone Pcp, Patient Does Not Have A Primary Care Physician +[id number] Elisa Ramirez Attending Clinician Unknown, Attending Attending Clinician Unavailable ELISA MONROE Attending Clinician Unavailable Ayse Cox Attending Clinician RACHID MENENDEZ Attending Clinician Unavailable Rachid Russo Attending Clinician UNKNOWN, ATTENDING Attending Clinician Unavailable Jak Smart Attending Clinician Payers Payer Name Policy Type Policy Number Effective Date Expiration Date S maribel [facility] [id number] 2021 00:00:00 Problems Condition Condition Condition Status Onset Resolution Last Treating Co mments Source Name Details Category Date Date Treatment Clinician Date No known No known Disease Unive rs active active ity of problems problems [facility] Allergies, Adverse Reactions, Alerts Allergy Allergy Status Severity Reaction(s) Onset Inactive Treating Comm ents Source Name Type Date Date Clinician NO KNOWN Drug Active Univers ALLERGIE Class ity of S [facility] Social History Social Habit Start Date Stop Date Quantity Comments Source Exposure to 2022-04-25 2022-05-05 Not sure University SARS-CoV-2 00:00:00 16:54:00 [facility] (event) [place] Tobacco use and 2021-11-20 2021-11-20 Smokeless tobacco Un iversity of exposure 00:00:00 00:00:00 non-user [facility] Sex Assigned At [birth year] Universit y of 00:00:00 00:00:00 [facility] Smoking Status Start Date Stop Date Source Never smoked tobacco [facility] Unknown if ever smoked [facility] Medications Ordered Filled Start Stop Current Ordering Indication Dosage Frequency Signature Comments Components Source Medication Medication Date Date Medication? Clinician (SIG) Name Name ondansetron 2021-07 Yes [id number] 4mg Take 1 Univers 4 mg 0-28 tablet by ity of disintegrat 00:00: mouth [place] ing tablet 00 every 8 Medica l (eight) Branch hours as needed for Nausea and Vomiting (N/V). ondansetron 2021-07 Yes [id number] 4mg Take 1 Univers 4 mg 0-28 tablet by ity of disintegrat 00:00: mouth [place] ing tablet 00 every 8 Medica l (eight) Branch hours as needed for Nausea and Vomiting (N/V). bromphenira Yes [id number] 10mL Take 10 mL Univers mine-pseudo 5-15 by mouth 4 it y of ephedrine-D 00:00: ([place] (BROMF[place] 00 times Medical DM) 2-30-10 daily as Bran ch mg/5 mL needed for syrup Congestion /Allergies or Cold symptoms. methylPREDN Yes [id number] Take by Univers ISolone 5-15 mouth ity of (MEDROL, 00:00: SEE-INSTRU Go as LOI,) 4 mg 00 CTIONS. Medica l tablets follow Branch package directions bromphenira Yes [id number] 10mL Take 10 mL Univers mine-pseudo 5-15 by mouth 4 it y of ephedrine-D 00:00[place] ([place] (BROMF[place] 00 times Medical DM) 2-30-10 daily as Bran ch mg/5 mL needed for syrup Congestion /Allergies or Cold symptoms. methylPREDN 0 Yes [id number] Take by Univers ISolone 5-15 mouth ity of (MEDROL, 00:00: SEE-INSTRU Go as LOI,) 4 mg 00 CTIONS. Medica l tablets follow Branch package directions bromphenira Yes [id number] 10mL Take 10 mL Univers mine-pseudo 5-15 by mouth 4 it y of ephedrine-D 00:00: ([place] (BROMFED 00 times Medical DM) 2-30-10 daily as Bran ch mg/5 mL needed for syrup Congestion /Allergies or Cold symptoms. methylPREDN 0 Yes [id number] Take by Univers ISolone 5-15 mouth ity of (MEDROL, 00:00: SEE-INSTRU Go as LOI,) 4 mg 00 CTIONS. Medica l tablets follow Branch package directions bromphenira Yes [id number] 10mL Take 10 mL Univers mine-pseudo 5-15 by mouth 4 it y of ephedrine-D 00:00: (four[place] (BROMFED 00 times Medical DM) 2-30-10 daily as Bran ch mg/5 mL needed for syrup Congestion /Allergies or Cold symptoms. methylPREDN Yes [id number] Take by Univers ISolone 5-15 mouth ity of (MEDROL, 00:00: SEE-INSTRU Go as LOI,) 4 mg 00 CTIONS. Medica l tablets follow Branch package directions ketorolac No 30mg 30 mg, Unive rs (TORADOL) - 04-19 Intramuscu ity of injection 21:45: 21:31 lar, ONCE, [place] 30 mg 00 :00 1 dose, Medical Mon Branch 10/25/20 at 1645, RAJANI
Fa culty member approving Restricted medication : JAK EVANS benzonatate Yes [id number] 100mg Take 1 Univers 100 mg 4-19 capsule by ity of capsule 00:00: mouth 3 [place] 00 (three) Medical times Branch daily as needed for Cough. ondansetron Yes [id number] 4mg Take 1 Univers (ZOFRAN 4-19 tablet by ity of ODT) 4 mg 00:00: mouth [place] disintegrat 00 every 8 Medic al ing tablet (eight) Branch hours as needed for Nausea and Vomiting (N/V). benzonatate Yes [id number] 100mg Take 1 Univers 100 mg 4-19 capsule by ity of capsule 00:00: mouth 3 [place] 00 (three) Medical times Branch daily as needed for Cough. benzonatate Yes [id number] 100mg Take 1 Univers 100 mg 4-19 capsule by ity of capsule 00:00: mouth 3 [place] 00 (three) Medical times Branch daily as needed for Cough. benzonatate 2020-0 Yes [id number] 100mg Take 1 Univers 100 mg 4-19 capsule by ity of capsule 00:00: mouth 3 [place] 00 (three) Medical times Branch daily as needed for Cough. ondansetron 2020-0 Yes [id number] 4mg Take 1 Univers (ZOFRAN 4-19 tablet by ity of ODT) 4 mg 00:00: mouth [place] disintegrat 00 every 8 Medic al ing tablet (eight) Branch hours as needed for Nausea and Vomiting (N/V). benzonatate 2020-0 Yes [id number] 100mg Take 1 Univers 100 mg 4-19 capsule by ity of capsule 00:00: mouth 3 [place] 00 (three) Medical times Branch daily as needed for Cough. ondansetron 2020-0 Yes [id number] 4mg Take 1 Univers (ZOFRAN 4-19 tablet by ity of ODT) 4 mg 00:00: mouth [place] disintegrat 00 every 8 Medic al ing tablet (eight) Branch hours as needed for Nausea and Vomiting (N/V). benzonatate 2020-0 Yes [id number] 100mg Take 1 Univers 100 mg 4-19 capsule by ity of capsule 00:00: mouth 3 [place] 00 (three) Medical times Branch daily as needed for Cough. ondansetron 2020-0 Yes [id number] 4mg Take 1 Univers (ZOFRAN 4-19 tablet by ity of ODT) 4 mg 00:00: mouth [place] disintegrat 00 every 8 Medic al ing tablet (eight) Branch hours as needed for Nausea and Vomiting (N/V). ondansetron 2020-0 2021- No [id number] 4mg Take 1 Univers (ZOFRAN 4-19 10-28 tablet by ity of ODT) 4 mg 00:00: 00:00 mouth [place] disintegrat 00 :00 every 8 Medic al ing tablet (eight) Branch hours as needed for Nausea and Vomiting (N/V). dexAMETHaso 2020-0 1- No [id number] 6mg Take 1 Univers ne 6 mg 4-19 04-27 tablet by ity of tablet 00:00: 04:59 mouth [place] 00 :00 daily for Medical 7 days. Branch Vital Signs Vital Name Observation Time Observation Value Comments Source Diastolic blood 2022-05-05 22:03:00 70 mm[Hg] Unive rsity of pressure [facility] Branch Heart rate 2022-05-05 22:03:00 77 /min Universi ty of [facility] Body temperature 2022-05-05 22:03:00 36.67 Estella Univ ersity of [facility] Branch Respiratory rate 2022-05-05 22:03:00 18 /min Univ ersity of [facility] Branch Body height 2022-05-05 22:03:00 185.4 cm Universi ty of [facility] Body weight 2022-05-05 22:03:00 189.15 kg [facility]i ty [facility] BMI 2022-05-05 22:03:00 55.02 kg/m2 Universi ty of [facility] Oxygen saturation in 2022-05-05 22:03:00 97 /min University of Arterial blood by [place] [employer] Pulse oximetry Branch Systolic blood 2022-05-05 22:03:00 116 mm[Hg] Univer sity of pressure [place] [facility] Systolic blood 2021-11-20 17:59:00 106 mm[Hg] Univer sity of pressure [facility] Diastolic blood 2021-11-20 17:59:00 70 mm[Hg] Unive rsity of [facility] Branch Heart rate 2021-11-20 17:59:00 78 /min Universi ty [facility] [place] [facility] [place] Body temperature 2021-11-20 17:59:00 37.06 Estella Univ ersity of [facility] Branch Respiratory rate 2021-11-20 17:59:00 18 /min Univ ersity of [facility] Branch Body height 2021-11-20 17:59:00 185.4 cm [facility]i ty [facility] Body weight 2021-11-20 17:59:00 189.15 kg [facility] BMI 2021-11-20 17:59:00 55.02 kg/m2 [facility] Oxygen saturation in 2021-11-20 17:59:00 96 /min University of Arterial blood by [place] [employer] sid Pulse oximetry Branch Systolic blood 2020-10-25 19:39:00 117 mm[Hg] Univer sity of pressure [place] [facility] Diastolic blood 2020-10-25 19:39:00 77 mm[Hg] Unive rsity of pressure [facility] Heart rate 2020-10-25 19:39:00 77 /min [facility] Body temperature 2020-10-25 19:39:00 37.56 Estella [facility] rate 2020-10-25 19:39:00 20 /min [facility] Body weight 2020-10-25 19:39:00 158.759 kg [facility] Oxygen saturation in 2020-10-25 19:39:00 97 /min [facility] Arterial blood by [facility] Pulse oximetry Branch Procedures Procedure Date / Time Performed Performing Clinician Sourc e POCT MOLECULAR FLU 2022-05-05 22:06:00 Unknown, Attending Guero calvert [facility] XR CHEST 2 2021-11-20 18:37:40 Ayse Ji [facility] XR CHEST 2 2020-10-25 20:17:59 Jak Evans [facility] NOTICE OF PRIVACY 2020-10-25 19:36:17 Doctor Unassigned, No Univ [facility] PRACTICES Name [facility] CONSENT/REFUSAL FOR 2020-10-25 19:34:24 [facility] Name [facility] TREATMENT Encounters Start End Encounter Admission Attending Care Care Encounter Source Date/Time Date/Time Type Type Clinicians Facility Department ID 2022-05-05 2022-05-05 Urgent Elisa [facility] [id number] Univers 17:00:00 17:20:00 Care Unknown, Attending [facility] [id number] lexi driscoll [place] [id number] Go as BALDO?BLEA [id number] Ri taras [address] MEDICAL OFFICE BUILDING 2022-05-05 2022-05-05 Outpatient R MABEL [facility] [id number] Univers 17:00:00 17:00:00 ELISA elliott [facility] 2022-05-05 2022-05-05 Letter Mabel [facility] [id number] Univers 00:00:00 00:00:00 (Out) [facility] [id number] i ty of [place] [id number] Go as BALDO?BLEA [id number] Ri taras [place] [address] MEDICAL OFFICE [facility] 2021-11-20 2021-11-20 [facility] [id number] Univers 13:28:29 23:59:00 Encounter [facility] [id number] ity of [place] 4.2.7.2.686 Go as BALDO?BLEA [id number] Ri taras [address] [address] MEDICAL OFFICE [facility] 2021-11-20 2021-11-20 Outpatient R GEMMA [facility] [id number] Univers 13:00:00 13:38:12 RACHID elliott [facility] 2021-11-20 2021-11-20 Urgent [place] Ayse [facility] [id number] Univers 13:00:00 13:38:12 Rachid [place] [facility] [id number] ity of [place] [id number] Go as BALDO?BLEA [id number] [facility] [address] [facility] OFFICE [facility] 2021-11-20 2021-11-20 Outpatient R GEMMA [facility] [id number] Univers 13:15:00 13:15:00 RACHID elliott shay [facility] 2021-11-20 2021-11-20 Outpatient R MELLISSA, [facility] [id number] Univers 13:00:00 13:00:00 ATTENDING ity [facility] 2021-03-11 2021-03-11 Urgent [facility] [id number] Univers 15:00:00 15:20:00 Care [facility] [id number] i ty of [place] [id number] Go as Baldo?Blea [id number] Ri taras [facility] [address] Medical Office [facility] 2021-03-11 2021-03-11 Outpatient R [facility] [id number] Univers 15:00:00 15:00:00 ity [facility] 2020-10-25 2020-10-25 Emergency [place], [facility] [id number] Univers 14:42:00 16:51:00 Jak Bourgeois [id number] i [place] 4.2.7.2.686 [facility] [id number] [facility] 084 Branch 2020-10-25 2020-10-25 Emergency X [facility] ERT [id number] Univers 14:34:00 14:34:00 [facility] Results Test Description Test Time Test Comments Results Result Comments Source POCT MOLECULAR FLU 2022-05-05 22:18:38 Test Item Value Reference Range Interpretation Comme nts POCT Molecular FluA (test code = 54491-7) Negative Negative POCT Molecular FluB (test code = 67533-8) Negative Negative Lab Interpretation (test code = 73644-3) [facility] [id number] 20:57:58 Bilateral ill-defined linear opacities may represent viral or atypicalpneumonia, including, but notlimited to, COVID 19 pneumonia. Disclaimer: Generally, the findings on chest imaging in COVID-19 arenotspecific, and overlap with other infections, including influenza, H1N1,SARS and MERS.According tothe Centers for Disease Control (CDC) and recent statement ofthe [employer], viral testing remains the only specificmethod of diagnosis. Confirmation with the viral test is required,even ifradiologic findings are suggestive of COVID-[address]. Preliminary Report Dictated by Resident: Diogenes Chino MD., have reviewed this study and agree with theabove report.EXAM: XR CHEST 2 VW HISTORY: 25 years-old Male; cough and congestion starting Sunday TECHNIQUE: Frontal and lateral views COMPARISON: None FINDINGS: Streaky ill- defined opacities are seen bilaterally, most prevalent in thelower lobes. No focal consolidation, pleural effusion, or pneumothorax isvisualized. The cardiomediastinal silhouette is normal. No acute osseous abnormality is present. [facility] Results Inft User - 10/25/2020 3:59 PM CDTEXAM: XR CHEST 2 VWHISTORY: 25 years-old Male; cough and congestion starting SundayTECHNIQUE: Frontal and lateral viewsCOMPARISON: NoneFINDINGS:Streaky ill-defined opacities are seen bilaterally, most prevalent in thelower lobes. No focal consolidation, pleural effusion, or pneumothorax isvisualized.The cardiomediastinal silhouette is normal. No acute osseous abnormality is present. IMPRESSIONBilateral ill- defined linear opacities may represent viral or atypicalpneumonia, including, but not limited to, COVID 19 pneumonia.Disclaimer: Generally, thefindings on chest imaging in COVID-19 are notspecific, and overlap with other infections, including influenza, H1N1,SARS and MERS.According to the Centers for Disease Control (CDC) and recent statementofthe [employer] of [employer], viral testing remains the only specificmethod of diagnosis. Confirmation with the viral test is required, even ifradiologic findings are suggestive of COVID-[address]. Preliminary Report Dictated by Resident: Chad Lim, Diogenes Alex MD., have reviewed this study and agree with theabove report. [facility]
[2022-06-25] MEDS ORDERED: NA CHLORIDE 0.9% 2,000 ML ONE (07:29)
[2022-06-25] MEDS ORDERED: FAMOTIDINE 20 MG/2 ML VIAL IV ONE (07:29)
[2022-06-25] MEDS ORDERED: MORPHINE 4 MG/ML SYR ONE (07:29)
[2022-06-25] MEDS ORDERED: ONDANSETRON 4 MG/2 ML VIAL ONE (07:29)
[2022-06-25] MEDS ORDERED: MULTIVITAMINS 10 ML VIAL (INJ) IV ONE (07:29)
[2022-06-25 07:47] LABS: Absolute Lymphocytes (CBC) 0.7 K/uL (0.7-4.9); Hematocrit 35.7 % (39.6-49.0); Lymphocytes % 11.2 % (15.3-44.8); MCV 88.1 fL (80-100); MPV 7.3 fL (7.6-11.3); RBC Red Blood Cell Count 4.05 M/uL (4.33-5.43)
--- NOTE | 2022-06-25 08:03 | RAD REPORT ---
EXAM DESCRIPTION: US - Abdomen Exam Limited - 06/25/2022 7:49 am CLINICAL HISTORY: ABD PAIN COMPARISON: Abdomen Pelvis W Contrast dated 11/20/2021 FINDINGS: Exam has limitation due to body habitus affects causing suboptimal visualization of the ga llbladder. Partially imaged liver shows a very prominent, coarsened echogenicity with decreased sonog raphic penetrance. This is typically seen with prominent fatty infiltration. This also limits visuali zation of the gallbladder. No gallstones, sludge or other abnormalities within the gallbladder lumen. There is no wall thickenin g or pericholecystic fluid. Gallbladder size is normal. No common duct stone or biliary tree dilatation identified. IMPRESSION: No gallbladder or biliary tree abnormality identifiable. Diffuse fatty infiltration of a partially imaged liver.
[2022-06-25 08:05] LABS: Bilirubin Total 1.6 mg/dL (0.2-1.0); Potassium 3.4 mmol/L (3.5-5.1); Protein, Total 7.9 g/dL (6.4-8.2)
--- NOTE | 2022-06-25 08:17 | EDPHYS ---
Physician Documentation [facility] Name: Donis Moreno Age: 27 yrs Sex: Male : 1995 Arrival Date: 06/25/2022 Time: 06:40 Bed 7 Private MD: ED Physician Gray Granados HPI: 06/25 07:13 This 27 yrs old Male presents to ER via EMS with complaints of abdominal goran pain, upper , recurrent. 07:13 The patient presents with abdominal pain in the epigastric area, in the upper abdomen, goran abdominal distention in the upper abdomen, in the lower abdomen. Onset: The symptoms/episode began/occurred 2 day(s) ago. The symptoms do not radiate. Associated signs and symptoms: none. The symptoms are described as crampy, intermittent. Modifying factors: The symptoms are alleviated by nothing, the symptoms are aggravated by nothing. Severity of pain: At its worst the pain was moderate in the emergency department the pain is unchanged. The patient has experienced similar episodes in the past, multiple times. Historical: - Allergies: 06:43 No Known Allergies; ke1 - PMHx: 06:43 None; ke1 - PSHx: 06:43 hernia; neck sx (tissue removed); ke1 - Immunization history:: Adult Immunizations Client reports having NOT received the Covid vaccine. - Social history:: Smoking status: Patient denies any tobacco usage or history of. - Family history:: not pertinent. ROS: 07:13 Constitutional: Negative for fever, chills, and weight loss, Eyes: Negative for injury, goran pain, redness, and discharge, ENT: Negative for injury, pain, and discharge, Neck: Negative for injury, pain, and swelling, Cardiovascular: Negative for chest pain, palpitations, and edema, Respiratory: Negative for shortness of breath, cough, wheezing, and pleuritic chest pain, Back: Negative for injury and pain, : Negative for injury, bleeding, discharge, and swelling, MS/Extremity: Negative for injury and deformity, Skin: Negative for injury, rash, and discoloration, Neuro: Negative for headache, weakness, numbness, tingling, and seizure, Psych: Negative for depression, anxiety, suicide ideation, homicidal ideation, and hallucinations, Allergy/Immunology: Negative for hives, rash, and allergies, Endocrine: Negative for neck swelling, polydipsia, polyuria, polyphagia, and marked weight changes. 07:13 Abdomen/GI: Positive for abdominal pain, of the right upper quadrant. Exam: 07:13 Constitutional: This is a well developed, well nourished patient who is awake, alert, goran and in no acute distress. Head/Face: Normocephalic, atraumatic. Eyes: Pupils equal round and reactive to light, extra-ocular motions intact. Lids and lashes normal. Conjunctiva and sclera are non-icteric and not injected. Cornea within normal limits. Periorbital areas with no swelling, redness, or edema. ENT: Nares patent. No nasal discharge, no septal abnormalities noted. Tympanic membranes are normal and external auditory canals are clear. Oropharynx with no redness, swelling, or masses, exudates, or evidence of obstruction, uvula midline. Mucous membranes moist. Neck: Trachea midline, no thyromegaly or masses palpated, and no cervical lymphadenopathy. Supple, full range of motion without nuchal rigidity, or vertebral point tenderness. No Meningismus. Chest/axilla: Normal chest wall appearance and motion. Nontender with no deformity. No lesions are appreciated. Cardiovascular: Regular rate and rhythm with a normal S1 and S2. No gallops, murmurs, or rubs. Normal PMI, no JVD. No pulse deficits. Respiratory: Lungs have equal breath sounds bilaterally, clear to auscultation and percussion. No rales, rhonchi or wheezes noted. No increased work of breathing, no retractions or nasal flaring. Back: No spinal tenderness. No costovertebral tenderness. Full range of motion. Male : Normal genitalia with no discharge or lesions. Skin: Warm, dry with normal turgor. Normal color with no rashes, no lesions, and no evidence of cellulitis. MS/ Extremity: Pulses equal, no cyanosis. Neurovascular intact. Full, normal range of motion. Neuro: Awake and alert, GCS 15, oriented to person, place, time, and situation. Cranial nerves II-XII grossly intact. Motor strength 5/5 in all extremities. Sensory grossly intact. Cerebellar exam normal. Normal gait. Psych: Awake, alert, with orientation to person, place and time. Behavior, mood, and affect are within normal limits. 07:13 Abdomen/GI: Inspection: distension, that is mild, Bowel sounds: normal, Palpation: mild abdominal tenderness, in the epigastric area and right upper quadrant, Liver: no appreciated palpable abnormalities, Hernia: not appreciated. Vital Signs: 06:41 BP 117 / 72; Pulse 72; Resp 18; Temp 98.0(O); Pulse Ox 95% on R/A; Weight 191.87 kg; oe Height 6 ft. 1 in. (185.42 cm); Pain 7/10; 06:46 BP 117 / 72; Pulse 72; Resp 18; Temp 98; Pulse Ox 95% on R/A; ke1 07:30 BP 121 / 78; Pulse 71; Resp 18; Pulse Ox 95% on R/A; ph 09:07 BP 108 / 69; Pulse 72; Resp 16; Temp 98.0; Pulse Ox 96% on R/A; ph 06:41 Body Mass Index 55.81 (191.87 kg, 185.42 cm) oe MDM: 06:40 Patient medically screened. goran 07:17 Differential diagnosis: bowel obstruction, cholecystitis, Cholelithiasis, gastritis, goran gastroesophageal reflux disease, Irritable bowel syndrome, non-specific abd pain, pancreatitis, Peptic Ulcer Disease, urinary tract infection. Data reviewed: vital signs, nurses notes, lab test result(s), EKG, radiologic studies, CT scan, plain films, ultrasound. 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 Test interpretation: by ED physician or midlevel provider: ECG, plain radiologic studies. Counseling: I had a detailed discussion with the patient and/or guardian regarding: the historical points, exam findings, and any diagnostic results supporting the discharge/admit diagnosis, lab results, radiology results. 08:15 ED course: Ultrasound and laboratory values reviewed and demonstrate normal ultrasound. sp3 T bili is mildly elevated along with LFTs however alk phos is normal. Ultrasound is consistent with fatty liver infiltration. 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 06/25 06:42 Order name: CBC with Diff; Complete Time: 08:12 goran 06/25 06:42 Order name: CMP; Complete Time: 08:12 [facility] 06/25 06:42 Order name: Lipase; Complete Time: 08:12 goran 06/25 07:18 Order name: Troponin HS; Complete Time: 08:12 [facility] 06/25 07:09 Order name: US Abdomen Limited; Complete Time: 08:12 [facility] 06/25 06:42 Order name: IV Saline Lock; Complete Time: 07:49 [facility] 06/25 06:42 Order name: Labs collected and sent; Complete Time: 07:49 [facility] 06/25 07:18 Order name: EKG; Complete Time: 07:19 [facility] 06/25 07:18 Order name: EKG - Nurse/Tech; Complete Time: 08:38 [facility] Administered Medications: 07:49 Drug: NS 0.9% 1000 ml Route: IV; Rate: 1 bolus; Site: left antecubital; ph 08:39 Follow up: Response: No adverse reaction; IV Status: Completed infusion; IV Intake: ph 1000ml 07:49 Drug: Pepcid (famotidine) 20 mg Route: IVP; Site: left antecubital; ph 08:39 Follow up: Response: No adverse reaction ph 07:49 Drug: Zofran (Ondansetron) 4 mg Route: IVP; Site: left antecubital; ph 08:39 Follow up: Response: No adverse reaction ph 07:49 Drug: morphine 4 mg Route: IVP; Infused Over: 4 mins; Site: left antecubital; ph 08:38 Follow up: Response: No adverse reaction; Pain is decreased; RASS: Drowsy (-1) ph 07:49 Drug: Banana Bag - (NS 0.9% 1000 ml, foLIC Acid 1 mg, Thiamine 100 mg, Multivitamin 1 ph amp) Route: IV; Rate: 150 calculated rate; Site: left antecubital; 09:05 Follow up: Response: No adverse reaction; IV Status: Completed infusion; IV Intake: ph 1000ml 09:06 Not Given (Pt d/c homee): morphine 4 mg IVP once over 4 mins ph 09:06 Not Given (Pt d/c homee): Zofran (Ondansetron) 4 mg IVP once; over 2 minutes ph Disposition Summary: 06/25/22 08:16 Discharge Ordered Location: Home sp3 Condition: Stable sp3 Diagnosis - Abdominal pain, unspecified sp3 Followup: sp3 - With: Private Physician - When: Upon discharge from the Emergency Department - Reason: Continuance of care Discharge Instructions: - Discharge Summary Sheet sp3 - Abdominal Pain, Adult sp3 Forms: - Medication Reconciliation Form sp3 - Thank You Letter sp3 - Work release form ph - Antibiotic Education sp3 - Prescription Opioid Use sp3 Prescriptions: - dicyclomine 10 mg Oral Capsule - take 1 capsule by ORAL route 3 times per day; 15 capsule; Refills: 0, Product sp3 Selection Permitted Signatures: Dispatcher [employer] EDMS Abebe Brannon MD MD cha Hall, Patricia RN RN Gray Granados MD MD sp3 Livan Arevalo RN RN ke1 Corrections: (The following items were deleted from the chart) 08:42 06:42 Abdomen Pelvis W Con+CT.RAD.BRZ ordered. EDHI ED
--- NOTE | 2022-06-25 08:17 | ER ---
Nurse's Notes [facility] Name: Donis Moreno Age: 27 yrs Sex: Male : 1995 Arrival Date: 06/25/2022 Time: 06:40 Bed 7 Private MD: Diagnosis: Abdominal pain, unspecified Presentation: 06/25 06:41 Chief complaint: EMS states: Abdominal pain + N/v for few weeks now and getting worse ke1 today. Coronavirus screen: Vaccine status: Patient reports being unvaccinated. Ebola Screen: No symptoms or risks identified at this time. Risk Assessment: Do you want to hurt yourself or someone else? Patient reports no desire to harm self or others. Onset of symptoms. 06:41 Method Of Arrival: EMS: [facility] ke1 06:41 Acuity: CHAPARR[place] 3 ke1 06:46 Initial Sepsis Screen: Does the patient meet any 2 criteria? No. Patient's initial ke1 sepsis screen is negative. Does the patient have a suspected source of infection? No. Patient's initial sepsis screen is negative. Triage Assessment: 06:45 General: Appears in no apparent distress. Behavior is appropriate for age. Pain: ke1 Complains of pain in abdomen Pain currently is 7 out of 10 on a pain scale. at worst was 10 out of 10 on a pain scale. level that patient reports is acceptable is 3 out of 10 on a pain scale. Historical: - Allergies: 06:43 No Known Allergies; ke1 - PMHx: 06:43 None; ke1 - PSHx: 06:43 hernia; neck sx (tissue removed); ke1 - Immunization history:: Adult Immunizations Client reports having NOT received the Covid vaccine. - Social history:: Smoking status: Patient denies any tobacco usage or history of. - Family history:: not pertinent. Screenin:44 [facility] ED Fall Risk Assessment (Adult) History of falling in the last 3 months, ke1 including since admission No falls in past 3 months (0 pts) Confusion or Disorientation No (0 pts) Intoxicated or Sedated No (0 pts) Impaired Gait No (0 pts) Mobility Assist Device Used No (0 pt) Altered Elimination No (0 pt) Score/Fall Risk Level 0 - 2 = Low Risk. Abuse screen: Denies threats or abuse. Nutritional screening: Has had N/V for 3 or more days. Tuberculosis screening: No symptoms or risk factors identified. Assessment: 07:50 Reassessment: Patient appears in no apparent distress at this time. Patient and/or ph family updated on plan of care and expected duration. Pain level reassessed. Patient is alert, oriented x 3, equal unlabored respirations, skin warm/dry/pink. General: Appears in no apparent distress. Behavior is calm, cooperative, quiet. Pain: Complains of pain in epigastric area and right upper quadrant. Neuro: Level of Consciousness is awake, alert, obeys commands, Oriented to person, place, time, situation. Cardiovascular: Capillary refill < 3 seconds in bilateral fingers Patient's skin is warm and dry. Respiratory: Airway is patent Respiratory effort is even, unlabored, Respiratory pattern is regular, symmetrical. GI: Abdomen is round Reports upper abdominal pain, nausea. Derm: Skin is healthy with good turgor, Skin is pink, warm \T\ dry. Vital Signs: 06:41 BP 117 / 72; Pulse 72; Resp 18; Temp 98.0(O); Pulse Ox 95% on R/A; Weight 191.87 kg; oe Height 6 ft. 1 in. (185.42 cm); Pain 7/10; 06:46 BP 117 / 72; Pulse 72; Resp 18; Temp 98; Pulse Ox 95% on R/A; ke1 07:30 BP 121 / 78; Pulse 71; Resp 18; Pulse Ox 95% on R/A; ph 09:07 BP 108 / 69; Pulse 72; Resp 16; Temp 98.0; Pulse Ox 96% on R/A; ph 06:41 Body Mass Index 55.81 (191.87 kg, 185.42 cm) oe ED Course: 06:40 Patient arrived in ED. ke1 06:40 Abebe Brannon MD is Attending Physician. [facility] 06:40 Livan Arevalo, MILTON is Primary Nurse. ke1 06:43 Triage completed. ke1 06:44 Bed in low position. Call light in reach. Side rails up X 1. ke1 06:45 Arm band placed on left wrist. ke1 07:23 Attending Physician role handed off by Abebe Brannon MD sp3 07:23 Grya Granados MD is Attending Physician. sp3 07:51 US Abdomen Limited In Process Unspecified. EDMS 07:51 Inserted saline lock: 20 gauge in left antecubital area, using aseptic technique. Blood ph collected. 09:06 No provider procedures requiring assistance completed. IV discontinued, intact, ph bleeding controlled, No redness/swelling at site. Pressure dressing applied. Administered Medications: 07:49 Drug: NS 0.9% 1000 ml Route: IV; Rate: 1 bolus; Site: left antecubital; ph 08:39 Follow up: Response: No adverse reaction; IV Status: Completed infusion; IV Intake: ph 1000ml 07:49 Drug: Pepcid (famotidine) 20 mg Route: IVP; Site: left antecubital; ph 08:39 Follow up: Response: No adverse reaction ph 07:49 Drug: Zofran (Ondansetron) 4 mg Route: IVP; Site: left antecubital; ph 08:39 Follow up: Response: No adverse reaction ph 07:49 Drug: morphine 4 mg Route: IVP; Infused Over: 4 mins; Site: left antecubital; ph 08:38 Follow up: Response: No adverse reaction; Pain is decreased; RASS: Drowsy (-1) ph 07:49 Drug: Banana Bag - (NS 0.9% 1000 ml, foLIC Acid 1 mg, Thiamine 100 mg, Multivitamin 1 ph amp) Route: IV; Rate: 150 calculated rate; Site: left antecubital; 09:05 Follow up: Response: No adverse reaction; IV Status: Completed infusion; IV Intake: ph 1000ml 09:06 Not Given (Pt d/c homee): morphine 4 mg IVP once over 4 mins ph 09:06 Not Given (Pt d/c homee): Zofran (Ondansetron) 4 mg IVP once; over 2 minutes ph Medication: 07:51 VIS not applicable for this client. ph Intake: 08:39 IV: 1000ml; Total: 1000ml. ph 09:05 IV: 1000ml; Total: 2000ml. ph Outcome: 08:16 Discharge ordered by MD. mobley 09:06 Discharged to home ambulatory, with significant other. ph 09:06 Condition: good 09:06 Discharge instructions given to patient, Instructed on discharge instructions, follow up and referral plans. medication usage, Demonstrated understanding of instructions, follow-up care, medications, Prescriptions given X 1. 09:07 Patient left the ED. ph Signatures: Dispatcher [employer] EDAbebe Haley MD MD cha Hall, Patricia, RN RN ph Anup Chan Setul, MD MD sp3 Livan Arevalo RN RN ke1
[2022-06-25 09:49] VITALS: BP 108/69; TEMP 98; O2SAT 96
== END 2022-06-25 09:07 | disposition home or self-care (01) ==
LOC: ER 06:37
DX: R10.9 Unspecified abdominal pain (principal)
CPT/HCPCS: 36415; 76705; 80053; 83690; 84484; 85025; 96365; 96375; 99284; J2405; J7030